=== PATIENT | female | born 2000 | race Caucasian/White ===

== ENCOUNTER 2022-11-17 06:40 | Emergency (ER) | payer SELFPAY ==
[2022-11-17 07:49] LABS: #Basophils 0.1 thou/uL (0.0-0.2); #Lymphocytes 1.1 thou/uL (1.20-3.40); #Monocytes 0.6 thou/uL (0.11-0.59); %Basophils 1.2 % (0.0-1.0); %Eosinophils 0.1 % (0.0-10.0); %Lymphocytes 16.4 % (28.0-48.0); %Monocytes 9.3 % (0.0-4.0); %Neutrophils 73.1 % (31.0-61.0); Mean Corpuscular HGB CONC 31.8 g/dL (32.0-36.0); Mean Corpuscular Hemoglobin 27.3 pg (25.0-35.0); Mean Corpuscular Volume 85.8 fl (78.0-98.0); Mean Platelet Volume 7.8 fL (7.4-10.4); Platelet Count 195 10x3/uL (130-400); RBC Distribution Width 12.9 % (11.5-14.5); Red Blood Cell (RBC) Count 4.41 mill/uL (4.00-5.20); White Blood Cell (WBC) Count 6.9 10x3/uL (4.8-10.8)
[2022-11-17] MEDS ORDERED: Sodium Chloride 0.9% 1,000 ML ONE (07:52)
[2022-11-17] MEDS ORDERED: Acetaminophen 325 MG TAB ONE (07:52)
[2022-11-17 08:07] LABS: ALT (SGPT) 6 U/L (8-55); AST (SGOT) 9 U/L (5-34); Albumin 3.9 g/dL (3.5-5.0); Alkaline Phosphatase 72 U/L (40-100); Anion Gap 14 mmol/L (10-20); BUN (Urea Nitrogen) 10 mg/dL (7.0-18.7); Bilirubin, Total 0.2 mg/dL (0.2-1.2); Calc. Creatinine Clearance 0 mL/min (70-130); Calcium 8.8 mg/dL (7.8-10.44); Carbon Dioxide 19 mmol/L (22-29); Chloride 113 mmol/L (98-107); Estimated GFR 128; Globulin 2.7 g/dL (2.4-3.5); Glucose 91 mg/dL (70-105); Potassium 3.7 mmol/L (3.5-5.1); Protein, Total 6.6 g/dL (6.0-8.3); Sodium 142 mmol/L (136-145)
[2022-11-17] MEDS ORDERED: Metoclopramide HCl 10 MG/2 ML VIAL ONE (08:21)
[2022-11-17 08:26] LABS: BHCG - Serum Negative (NEGATIVE); Pregs Control Bar Appear? YES (CONTROL BAR)
[2022-11-17 08:59] LABS: Bilirubin Negative (Negative); Blood, Urine Negative (Negative); Clarity Clear (Clear); Glucose, Urine (Dipstick) Negative (Negative); Ketone, Urine Negative (Negative); Leukocyte Moderate (Negative); Nitrite Negative (Negative); Protein, Urine (Dipstick) Negative (Neg-Trace); Urobilinogen 0.2 mg/dL (Less than 2); pH, Urine 6.5 (5.0-9.0)
[2022-11-17 09:04] LABS: Bacteria/HPF 1+ HPF (None Seen); RBC/HPF None Seen HPF (0-3)
[2022-11-17 09:12] LABS: Amphetamine Not Detected (NotDetected); Barbiturates Screen Not Detected (NotDetected); Benzodiazepine Screen Not Detected (NotDetected); Cocaine Metabolite Screen Not Detected (NotDetected); Methadone Not Detected (NotDetected); Methamphetamine Not Detected (NotDetected); Opiate Screen Not Detected (NotDetected); Oxycodone Screen Not Detected (NotDetected); Phencyclidine (PCP) Not Detected (NotDetected); THC/Cannabinoid Screen Detected (NotDetected); Tricyclic Screen Not Detected (NotDetected)
[2022-11-17 15:19] LABS: Iron 23 ug/dL (50-170); Iron Binding Capacity, Total 298 mcg/dL (265-497)
[2022-11-17 16:25] LABS: Ferritin 10.08 ng/mL (10-291)
== END 2022-11-17 09:45 | disposition home or self-care (01) ==
LOC: NAV ERS 06:40
DX: R55 Syncope and collapse (principal); S00.93XA Contusion of unspecified part of head, initial encounter; F12.90 Cannabis use, unspecified, uncomplicated; F17.290 Nicotine dependence, other tobacco product, uncomplicated; W18.30XA Fall on same level, unspecified, initial encounter
CPT/HCPCS: 36416; 70450; 71045; 80053; 80306; 81003; 81015; 82607; 82728; 83540; 83550; 83605; 83735; 83880; 84443; 84484; 84703; 85025; 85046; 93005; 96365; 36415-59; J2765; J7050